=== PATIENT | male | born 1945 | race Caucasian/White ===

== ENCOUNTER 2017-02-03 13:22 | Inpatient (IN) | payer BC ==
[~2017-02-03] VITALS: Ht 160 cm; Wt 65.8 kg
[2017-02-03] VITALS (429 sets, daily range): BP systolic 122–154; BP diastolic 57–78; PULSE 27–65; TEMP 97.4–98.7; O2SAT 95–100
[2017-02-03] MEDS ORDERED: GLUCOPHAGE500 MG/TAB PO ×2 (14:03→14:04)
[2017-02-03] MEDS ORDERED: NORVASC 10MG10 MG PO (14:04)
[2017-02-03] MEDS ORDERED: TENORMIN 5050 MG/TAB PO (14:05)
[2017-02-03] MEDS ORDERED: JANUVIA 100MG100 MG PO (14:06)
[2017-02-03] MEDS ORDERED: ZOCOR 40MG40 MG PO (14:06)
[2017-02-03] MEDS ORDERED: ACCURETIC 12.51 TA1 PO (14:07)
[2017-02-03] MEDS ORDERED: VALIUM 5MG T5 MG/TAB PO (14:08)
[2017-02-03] MEDS ORDERED: MULTIPLE VITAMI1 CAP PO (14:09)
[2017-02-03] MEDS ORDERED: TYLENOL 500MG500 MG PO (14:10)
[2017-02-03] MEDS ORDERED: ASPIRIN 81M81 MG/TA2 PO (14:12)
[2017-02-03] MEDS ORDERED: SUDAFED30 MG PO (14:13)
[2017-02-03] MEDS ORDERED: FERROUS SULFATE65 MG PO (14:13)
[2017-02-03] MEDS ORDERED: FLOVENT DI50 MCG/Act IH (14:14)
[2017-02-03] MEDS ORDERED: VIAGRA100 M1 PO (14:15)
[2017-02-04] VITALS (442 sets, daily range): BP systolic 145–166; BP diastolic 63–77; PULSE 60–70; TEMP 98.3–98.8; O2SAT 83–100
[2017-02-04 05:59] LABS: BASO % 0.3 % (0.0-2.0); EOS # 0.1 (0.0-0.7); EOS % 1.3 % (0-4.0); GRAN # 7.1 (1.4-6.5); GRAN % 76.6 % (42.2-75.2); HEMOGLOBIN 12.2 g/dl (13.5-18.0); LYMPH # 1.3 (1.2-3.4); LYMPH % 14.4 % (20.0-51.0); MEAN CELL VOLUME 86 fl (80.0-100.0); MEAN CORPUSCULAR HEMOGLOBIN 29 pg (27.0-31.0); MEAN CORPUSCULAR HGB CONC 34 g/dl (33.0-37.0); MEAN PLATELET VOLUME 9.7 fl (7.4-10.4); MONO # 0.6 (0.1-0.6); MONO % 6.9 % (1.7-9.3); PLATELET COUNT 199 K/mm3 (130-400); RED BLOOD COUNT 4.17 M/mm3 (4.20-5.60); WHITE BLOOD COUNT 9.2 K/mm3 (4.8-10.8)
[2017-02-04 06:03] LABS: PROTHROMBIN TIME 11.2 SECONDS (9.7-12.8)
[2017-02-04 06:13] LABS: ADJUSTED CALCIUM 9.6 mg/dL (8.4-10.2); BILIRUBIN,TOTAL 0.5 mg/dL (0.0-1.0); CALCIUM 9.6 mg/dL (8.4-10.2); CREATININE, serum 1.18 mg/dL (0.66-1.25); MAGNESIUM 1.7 mg/dL (1.6-2.3); PHOSPHOROUS 3.9 mg/dL (2.5-4.5); POTASSIUM 4.2 mmol/L (3.4-5.0); TOTAL PROTEIN 7.2 gm/dL (6.4-8.2)
== END 2017-02-04 15:00 | disposition home or self-care (01) | DRG 244 ==
LOC: ICU 13:22 → IMCU 15:26
PROVIDERS: Internal Medicine Cardiovascular Disease
PROC: 0JH606Z Insertion of Pacemaker, Dual Chamber into Chest Subcutaneous Tissue and Fascia, Open Approach (ICD-10-PCS; principal; 2017-02-04)
PROC: 02H63JZ Insertion of Pacemaker Lead into Right Atrium, Percutaneous Approach (ICD-10-PCS; 2017-02-04)
PROC: 02HK3JZ Insertion of Pacemaker Lead into Right Ventricle, Percutaneous Approach (ICD-10-PCS; 2017-02-04)
DX: I44.2 Atrioventricular block, complete (principal); R00.1 Bradycardia, unspecified; I10 Essential (primary) hypertension
CPT/HCPCS: 99238; C1785; C1894; C1898; J0690; J1265; J2250; J3010; J7030